=== PATIENT | male | born 1995 | race American Indian/Alaskan Native ===

== ENCOUNTER 2021-08-30 22:55 | Emergency (ER) | payer SELFPAY ==
[2021-08-30 23:00] VITALS: BP 132/83
[2021-08-30] MEDS ORDERED: LIDOCAINE-MPF (1%) 10 MG/1 ML VIAL 5 ML INFILTRATI ONE (23:39)
[2021-08-30] MEDS ORDERED: TETANUS,DIPH,PERTUSS(ACELL) VACCINE 0.5 ML SYRINGE IM ONE (23:39)
[2021-08-30] MEDS ORDERED: IBUPROFEN 600 MG TAB PO ONE (23:40)
--- NOTE | 2021-08-31 00:27 | Emergency Department Report ---
ED Upper Extremity Inj HPI - General Chief Complaint: Wound/Laceration Stated Complaint: LAC LF INDEX FINGER Source: patient, EMS Mode of arrival: Ambulatory Limitations: No Limitations - History of Present Illness Initial Comments: Patient is a 25-year-old -[place] male with no past medical history who presents to the ED with complaint of acute onset persistent painful bleeding left index finger laceration wound after he accidentally cut his left index finger when cutting vegetables at home about 1 hour ago. Patient states that the bleeding is controlled at this time. Patient also states that he is not up-to-date with his tetanus vaccination. Patient denies numbness and tingling or weakness of left hand or left index finger, nausea and vomiting, syncope, jonel rtness of breath or change in vision. MD Complaint: Injury to:: left, finger (Left index finger bleeding laceration wound with pain) -: Sudden, hour(s) (1) Other Extremity Injury: Fingers: Left (Left index finger bleeding laceration) Other Injuries: none Place: home Severity scale (0 -10): 7 Improves With: none Worsens With: movement of extremity Context: laceration Associated Symptoms: denies other symptoms. denies: weakness, numbness, neck pain, suspects foreign body, nausea/vomiting, heard/felt popping sensat - Related Data Previous Rx's Medication Instructions Recorded Last Taken Type Acetaminophen/Codeine [Tylenol 1 tab PO Q6H PRN #10 tab 08/31/21 Unknown Rx /Codeine # 3 tab] Ibuprofen [Motrin] 600 mg PO Q8H PRN #24 tablet 08/31/21 Unknown Rx cephALEXin [Keflex] 500 mg PO Q8HR #30 cap 08/31/21 Unknown Rx Allergies Allergy/AdvReac Type Severity Reaction Status Date / Time No Known Allergies Allergy Unverified 08/30/21 23:00 ED Review of Systems ROS: Stated complaint: LAC LF INDEX FINGER Other details as noted in HPI Constitutional: denies: chills, fever Eyes: denies: eye pain, eye discharge, vision change ENT: denies: ear pain, throat pain Respiratory: denies: cough, shortness of breath, wheezing Cardiovascular: denies: chest pain, palpitations Endocrine: no symptoms reported Gastrointestinal: denies: abdominal pain, nausea, diarrhea Genitourinary: denies: urgency, dysuria Musculoskeletal: arthralgia (Bleeding, painful, left index finger laceration wound). denies: back pain, joint swelling Skin: other (Bleeding left index finger laceration wound). denies: rash, lesions Neurological: denies: headache, weakness, paresthesias Psychiatric: denies: anxiety, depression Hematological/Lymphatic: denies: easy bleeding, easy bruising ED Past Medical Hx - Past Medical History Previous Medical History?: No - Surgical History Past Surgical History?: No - Medications Home Medications: Home Medications Medication Instructions Recorded Confirmed Last Taken Type Acetaminophen/Codeine [Tylenol 1 tab PO Q6H PRN #10 tab 08/31/21 Unknown Rx /Codeine # 3 tab] Ibuprofen [Motrin] 600 mg PO Q8H PRN #24 tablet 08/31/21 Unknown Rx cephALEXin [Keflex] 500 mg PO Q8HR #30 cap 08/31/21 Unknown Rx ED Physical Exam - General Limitations: No Limitations General appearance: alert, in no apparent distress - Head Head exam: Present: atraumatic, normocephalic, normal inspection - Eye Eye exam: Present: normal appearance, PERRL, EOMI Pupils: Present: normal accommodation - ENT ENT exam: Present: normal exam, normal orophraynx, mucous membranes moist, TM's normal bilaterally, normal external ear exam - Neck Neck exam: Present: normal inspection, full ROM - Respiratory Respiratory exam: Present: normal lung sounds bilaterally. Absent: respiratory distress, wheezes, rales, stridor, chest wall tenderness, accessory muscle use, decreased breath sounds, prolonged expiratory - Cardiovascular Cardiovascular Exam: Present: regular rate, normal rhythm, normal heart sounds. Absent: systolic murmur, diastolic murmur, rubs, gallop - GI/Abdominal GI/Abdominal exam: Present: soft, normal bowel sounds. Absent: tenderness, guarding, rebound, hyperactive bowel sounds, organomegaly - Extremities Exam Extremities exam: Present: normal inspection, full ROM, tenderness (Palpable distal left index finger tenderness due to a bleeding 3 cm laceration wound), normal capillary refill - Back Exam Back exam: Present: normal inspection, full ROM. Absent: tenderness, CVA tenderness (R), CVA tenderness (L), muscle spasm, paraspinal tenderness, vertebral tenderness - Neurological Exam Neurological exam: Present: alert, oriented X3, CN II-XII intact, normal gait, reflexes normal - Psychiatric Psychiatric exam: Present: normal affect, normal mood - Skin Skin exam: Present: warm, dry, intact, normal color, other (Bleeding 3 cm laceration on distal left index finger with localized tenderness). Absent: rash ED Course Vital Signs 08/30/21 22:58 Temperature 97.7 F Pulse Rate 60 Respiratory 16 Rate Blood Pressure 132/83 [Left] O2 Sat by Pulse 99 Oximetry - Laceration /Wound Repair Left Distal Finger Wound Location: upper extremity (Distal left index finger) Wound Length (cm): 3 Wound's Depth, Shape: superficial Wound Explored: contaminated Irrigated w/ Saline (ccs): 200 Betadine Prep?: Yes Anesthesia: 1% Lidocaine Volume Anesthetic (ccs): 4 Wound Debrided: extensive Wound Repaired With: sutures Suture Size/Type: 4:0 Number of Sutures: 5 Layer Closure?: No Sterile Dressing Applied?: Yes Progress: The wound was cleaned extensively with normal saline and Betadine solutions. 4 cc of 1% lidocaine solution was infiltrated around the wound for anesthesia. When anesthesia was fully achieved, the wound was sutured per protocol and the patient tolerated procedure well. The wound was then dressed appropriately and the patient discharged home on pain medication and prophylactic antibiotics. Patient was advised to return to the ED immediately if symptoms get worse. Patient was also advised to follow-up with his primary care physician or return to the ED in 12 to 14 days for suture removal. ED Medical Decision Making - Medical Decision Making This is a 25-year-old -[place] male with no past medical history who presents to the ED with complaint of acute onset persistent painful bleeding left index finger laceration wound after he accidentally cut his left index finger when cutting vegetables at home about 1 hour ago. Patient states that the bleeding is controlled at this time. Patient also states that he is not up-to-date with his tetanus vaccination. In the ED, patient is alert and oriented x3 and is not in any distress. Patient was treated for pain in the ED and also received booster tetanus vaccination in the ED. Patient is hemodynamically stable. The wound was cleaned extensively with normal saline and Betadine solutions. 4 cc of 1% lidocaine solution was infiltrated around the wound for anesthesia. When anesthesia was fully achieved, the wound was sutured per protocol and the patient tolerated procedure well. The wound was then dressed appropriately and the patient discharged home on pain medication and prophylactic antibiotics. Patient was advised to return to the ED immediately if symptoms get worse. Patient was also advised to follow-up with his primary care physician or return to the ED in 12 to 14 days for suture removal. - Differential Diagnosis Finger laceration; puncture wound; finger contusion Critical care attestation.: If time is entered above; I have spent that time in minutes in the direct care of this critically ill patient, excluding procedure time. ED Disposition Clinical Impression: Laceration of left index finger w/o foreign body w/o damage to nail Qualifiers: Encounter type: initial encounter Qualified Code(s): S61.211A - Laceration without foreign body of left index finger without damage to nail, initial encounter Disposition: HOME / SELF CARE / HOMELESS Is pt being admited?: No Does the pt Need Aspirin: No Condition: Stable Instructions: Laceration Care, Adult, [id number], Sutured Wound Care, [id number] Additional Instructions: Take medication with food, drink plenty of fluids and follow-up with your primary care physician in 7 to 10 days for reevaluation. Return to the ED imm ediately if symptoms get worse. Otherwise return to the ED or to your primary care physician in 12 to 14 days for suture removal. Prescriptions: cephALEXin [Keflex] 500 mg PO Q8HR #30 cap Ibuprofen [Motrin] 600 mg PO Q8H PRN #24 tablet PRN Reason: Pain Acetaminophen/Codeine [Tylenol /Codeine # 3 tab] 1 tab PO Q6H PRN #10 tab PRN Reason: Severe pain Referrals: [facility] [Provider Group] - 7-10 days Forms: Work/School Release Form(ED) Time of Disposition: 00:30 Print Language: [place]
== END 2021-08-31 01:31 | disposition home or self-care (01) ==
LOC: ED 22:55
DX: S61.213A Laceration without foreign body of left middle finger without damage to nail, initial encounter (principal); Z79.899 Other long term (current) drug therapy; W26.0XXA Contact with knife, initial encounter; Y93.89 Activity, other specified; Y92.89 Other specified places as the place of occurrence of the external cause; Y99.8 Other external cause status
CPT/HCPCS: 90471; 90715; 99283